=== PATIENT | female | born 1990 | race American Indian/Alaskan Native ===

== ENCOUNTER 2021-08-07 08:20 | Day surgery (SDC) | payer MEDICAID ==
[2021-07-31 10:48] LABS: Mean Corpuscular HGB Conc 29 % (30-34); Mean Corpuscular Volume 71 fl (79-97); Platelet Count 324 K/mm3 (140-440); Red Blood Count 4.12 M/mm3 (3.65-5.03)
[2021-07-31 10:50] LABS: Hematocrit 29.2 % (30.3-42.9); Hemoglobin 8.4 gm/dl (10.1-14.3)
[~2021-08-07 08:20] MED LIST: LACTATED RINGERS 1,000 ML IV SCH; MIDAZOLAM 2 MG/2 ML INJ IV NR
--- NOTE | 2021-08-07 09:45 | Anesthesia Consultation ---
Anesthesia Consult and Med Hx Date of service: 08/07/21 - Airway Anesthetic Teeth Evaluation: Good ROM Head & Neck: Adequate Mental/Hyoid Distance: Adequate Mallampati Class: Class III Intubation Access Assessment: Possibly Difficult - Pre-Operative Health Status ASA Pre-Surgery Classification: ASA3 Proposed Anesthetic Plan: General - Pulmonary Hx Smoking: No Hx Respiratory Symptoms: No Hx Sleep Apnea: No - Cardiovascular System Hx Hypertension: No Hx Heart Attack/AMI: No - Central Nervous System CVA: No - Endocrine Hx Renal Disease: No Hx Liver Disease: No Hx Insulin Dependent Diabetes: No Hx Non-Insulin Dependent Diabetes: No Hx Thyroid Disease: No - Hematic Hx Anemia: Yes - Other Systems Hx Obesity: Yes (BMI 41) - Additional Comments Anesthesia Medical History Comments: No hx anesthetic complications.
--- NOTE | 2021-08-07 09:46 | Anesthesia Day of Surgery ---
Anesthesia Day of Surgery - Day of Surgery Patient Examined: Yes Patient H&P Reviewed: Yes Patient is NPO: Yes
[2021-08-07] MEDS ORDERED: fentaNYL 100 MCG/2 ML INJ IV PRN (10:00)
[2021-08-07] MEDS ORDERED: ONDANSETRON 4 MG/2 ML INJ IV PRN (10:00)
[2021-08-07] MEDS ORDERED: HYDROcodone/ACETAMINOPHEN 5-325 MG TAB PO PRN (10:00)
[2021-08-07] MEDS ORDERED: LIDOCAINE MPF (2%) 20 MG/1 ML VIAL 5 ML ONE (10:28)
[2021-08-07] MEDS ORDERED: propofoL 200 MG/20 ML VIAL IV ONE ×2 (10:28→11:17)
[2021-08-07] MEDS ORDERED: HYDROmorphone 1 MG/1 ML INJ ONE (10:28)
[2021-08-07] MEDS ORDERED: FAMOTIDINE 20 MG/2 ML INJ IV ONE ×2 (11:04→11:05)
--- NOTE | 2021-08-07 11:09 | Operative Report ---
Operative Report Operative Report: Preoperative diagnosis: Dysfunctional Uterine bleeding, cervical dysplasia Postoperative diagnosis: Same Procedure: Hysteroscopy dilation and curettage with endocevical curettage Surgeon: Dr. Sophie Vaughn Anesthesia: GETA EBL: Minimal Urine output: None IV fluids:minimal Complications: none Findings:diffuse polypoid endometrium Procedure: Patient was counseled in preop holding area about risks benefits possible complications as well as alternatives to the procedure. Informed consent was obtained. She was taken to the OR where she received excellent general endotracheal anesthesia. She was then placed in a dorsal lithotomy position. Exam under anesthesia revealed normal size uerus with no palpable masses. Patient was then prepped and draped in a sterile fashion. A timeout was verified. Patient was straight cathed with a red rubber catheter, with minimal urine obtained. A speculum was placed in the vaginal vault, the cervix was noted to be pink with no lesions. A single-tooth tenaculum was placed on the anterior lip of the cervix and the endometrium sounded to 7cm. The cervix was then dilated to allow for the passage of the hysteroscope. The uterus was hydrodistended, the endometrium was noted to be polypoid and idffise, pictures were taken. Sharp curettage was performed with the Kevorkian curette. Endometrial samplings were sent to pathology. Then separate endocervical curettings were obtained and sent to pathology in a separate specimen cup. At the completion of the procedure the hysteroscope, tenaculum, and speculum were removed from the uterus cervix and vagina respectively. EBL minimal. Patient extubated and taken to the PACU in stable condition. Patient's family notified of stable condition for completion of the procedure. All sponge needle instrument counts correct x2. Patient will follow-up in the outpatient setting in 1 week. Sayda ROSALES
[2021-08-07] MEDS ORDERED: SODIUM CHLORIDE 0.9% IRRIG SOLN 2000 ML IR ONE (11:15)
[2021-08-07] MEDS ORDERED: KETOROLAC 30 MG/1 ML INJ ONE (11:42)
[2021-08-07] MEDS ORDERED: ONDANSETRON 4 MG/2 ML INJ ONE (11:42)
[2021-08-07] MEDS ORDERED: dexAMETHasone 20 MG/5 ML VIAL ONE (11:42)
--- NOTE | 2021-08-07 14:25 | Post Anesthesia Evaluation ---
- Post Anesthesia Evaluation Patient Participated: Yes Airway Patent: Yes Stable Respiratory Function: Yes Nausea/Vomiting: No Temp > 96.8F: Yes Pain Manageable: Yes Adequeate Hydration: Yes Anesthesia Complications: No
[2021-08-07 17:29] VITALS: BP 146/70
== END 2021-08-07 08:21 | disposition home or self-care (01) ==
LOC: OR 08:20
PROVIDERS: ATTEND Obstetrics & Gynecology
DX: N93.8 Other specified abnormal uterine and vaginal bleeding (principal); Z20.822 Contact with and (suspected) exposure to COVID-19; N87.9 Dysplasia of cervix uteri, unspecified; N84.0 Polyp of corpus uteri; K21.9 Gastro-esophageal reflux disease without esophagitis; E66.9 Obesity, unspecified; Z98.890 Other specified postprocedural states; Z79.899 Other long term (current) drug therapy; Z91.040 Latex allergy status; Z68.41 Body mass index [BMI] 40.0-44.9, adult
CPT/HCPCS: 36415; 58558; 81025; 85027; 86850; 86900; 86901; 88305; J1100; J1170; J1885; J2250; J2405; J2704; J3490; J7120; U0003